=== PATIENT | female | born 1950 | race Caucasian/White ===

== ENCOUNTER 2018-10-25 07:28 | Inpatient (IN) | payer BC, OTHER ==
[~2018-10-25 07:28] MED LIST: CEFAZOLIN 1 GM INJ; CEFAZOLIN 2 GM/50 ML (PMX) 50 ML IVPB; DESFLURANE 15 MIN; PROPOFOL 200 MG INJ
[2018-10-25] MEDS: DEXAMETHASONE 1 MG TAB PO (08:32)
[2018-10-25] MEDS: GABAPENTIN 300 MG CAP PO ×2 (08:32→21:31)
[2018-10-25] MEDS ORDERED: POLYMYXIN/BACITRACIN 1L IRRIG (09:30)
[2018-10-25] MEDS ORDERED: MIDAZOLAM 1 MG/ML 2 ML INJ (10:27)
[2018-10-25] MEDS ORDERED: ROCURONIUM 50 MG INJ (10:27)
[2018-10-25] MEDS ORDERED: SUCCINYLCHOLINE CHLORIDE 100 MG/5 ML SYG IV (10:27)
[2018-10-25] MEDS ORDERED: LIDOCAINE 100 MG SYRINGE (10:27)
[2018-10-25] MEDS ORDERED: FENTAnyl 50 MCG/ML VIAL (10:28)
[2018-10-25] MEDS ORDERED: ROPIVACAINE 0.5 % 30 ML VIAL (10:28)
[2018-10-25] MEDS ORDERED: DIPHENHYDRAMINE 50 MG INJ IV ×2 (10:30→12:30)
[2018-10-25] MEDS ORDERED: FENTAnyl 50 MCG/ML VIAL IV ×3 (10:30)
[2018-10-25] MEDS ORDERED: ALBUTEROL 0.083% (NEB) 2.5 MG/3 ML AMP HHN (10:30)
[2018-10-25] MEDS ORDERED: HYDROmorphONE 1 MG/5 ML IV SYRINGE IV ×3 (10:30)
[2018-10-25] MEDS ORDERED: ONDANSETRON 4 MG INJ IV (10:30)
[2018-10-25] MEDS: TRANEXAMIC ACID 1GM/100ML(PMX) 100 ML IVPB ×2 (10:30→13:03)
[2018-10-25] MEDS ORDERED: MEPERIDINE 25 MG INJ IV (10:30)
[2018-10-25] MEDS ORDERED: CA CHLORIDE 10% 10 ML SYRINGE (10:59)
[2018-10-25] MEDS ORDERED: THROMBIN 5000 UNIT VIAL (10:59)
[2018-10-25] MEDS: POLYMYXIN/BACITRACIN 1L IRRIG IRR (11:02)
[2018-10-25] MEDS: BUPIVACAINE 0.5% (SDV) 30 ML, morphine SULFATE (PF) 8 MG, EPINEPHrine 0.3 MG, KETOROLAC... IRR (11:03)
[2018-10-25] MEDS ORDERED: SUGAMMADEX SODIUM 200 MG/2 ML VIAL IV (11:53)
[2018-10-25] MEDS ORDERED: oxyCODONE 5 MG TAB PO ×2 (12:30)
[2018-10-25] MEDS ORDERED: NACL 0.9% 3 ML SYG IV (12:30)
[2018-10-25] MEDS ORDERED: ZOLPIDEM 5 MG TAB PO (12:30)
[2018-10-25] MEDS ORDERED: LORAZEPAM 1 MG TAB PO (12:30)
[2018-10-25] MEDS ORDERED: LOPERAMIDE 2 MG CAP PO (12:30)
[2018-10-25] MEDS ORDERED: MAGNESIUM HYDROXIDE 30ML CUP PO (12:30)
[2018-10-25] MEDS: CEFAZOLIN 1 GM/50 ML (PMX) 50 ML IVPB ×2 (13:33→21:32)
[2018-10-25] MEDS: DEXAMETHASONE 2 MG TAB PO (18:01)
[2018-10-25] MEDS: ACETAMINOPHEN 500 MG TAB PO (18:02)
[2018-10-25] MEDS: oxyCODONE 5 MG TAB PO (18:22)
[2018-10-25] MEDS ORDERED: QUETIAPINE FUMARATE 300 MG PO (21:00)
[2018-10-25] MEDS: AMITRIPTYLINE 50 MG TAB PO (21:30)
[2018-10-25] MEDS: SENNA/DOCUSATE NA (8.6MG/50MG) TAB PO (21:31)
[2018-10-25] MEDS: KETOROLAC 15 MG INJ IV (21:38)
[2018-10-26] MEDS: DEXAMETHASONE 2 MG TAB PO ×3 (00:46→12:36)
[2018-10-26] MEDS: ACETAMINOPHEN 500 MG TAB PO ×3 (00:46→12:36)
[2018-10-26] MEDS: oxyCODONE 5 MG TAB PO ×2 (00:49→11:04)
[2018-10-26] MEDS: HYDROmorphONE 1 MG/ML SYG IV (03:29)
[2018-10-26] MEDS: CEFAZOLIN 1 GM/50 ML (PMX) 50 ML IVPB (05:20)
[2018-10-26] MEDS: ONDANSETRON 4 MG INJ IV (09:22)
[2018-10-26] MEDS: SENNA/DOCUSATE NA (8.6MG/50MG) TAB PO (09:23)
[2018-10-26] MEDS: KETOROLAC 15 MG INJ IV (09:23)
== END 2018-10-26 13:41 | disposition home or self-care (01) | DRG 483 ==
LOC: REC 07:28 → MS1 13:34
PROC: 0RRK00Z Replacement of Left Shoulder Joint with Reverse Ball and Socket Synthetic Substitute, Open Approach (ICD-10-PCS; principal; 2018-10-25 09:30)
PROC: 0PBB0ZZ Excision of Left Clavicle, Open Approach (ICD-10-PCS; 2018-10-25 09:30)
DX: M19.212 Secondary osteoarthritis, left shoulder (principal); M75.102 Unspecified rotator cuff tear or rupture of left shoulder, not specified as traumatic; M19.012 Primary osteoarthritis, left shoulder
CPT/HCPCS: 73030; 86999; 88304; 88311; 97161